=== PATIENT | female | born 2005 | race Caucasian/White ===

== ENCOUNTER 2023-09-07 15:45 | Outpatient (CLI) | payer OTHER, SELFPAY ==
--- NOTE | ~2023-09-07 | US_ITS ---
EXAMINATION: US OB <= 14 weeks fetus INDICATION: N91.2 - Amenorrhea, unspecified TECHNIQUE: Sonography of the pelvis was performed by transabdominal and transvaginal techniques. COMPARISON: None. RESULT: Uterus: 15.9 x 7.8 x 10.7 cm. Anteverted. Homogenous myometrium. Intrauterine gestational sac: Single present. Mean Sac Diameter: 6.7 cm, corresponding gestational age 13 week 1 days. Embryo: Single present. [place] rump length: 7.8 cm, corresponding gestational age 13 weeks, 6 days. Gestational heart rate: present 165 bpm. Subgestational hematoma: Absent . Right ovary: Not visualized. No adnexal mass. Left ovary: Not visualized. No adnexal mass. Pelvis free fluid: None. IMPRESSION: Single, live intrauterine gestation. Estimated Gestational Age: 13 weeks, 6 days by crown rump length. HORACE by ultrasound 03/08/2024. Reviewed, dictated and finalized at location K. IMPRESSION: Single, live intrauterine gestation. Estimated Gestational Age: 13 weeks, 6 days by crown rump length. HORACE by ultra sound 03/08/2024.
== END 2023-09-07 15:46 | disposition home or self-care (01) ==
LOC: ANHIMG 15:46
PROVIDERS: Visit Provider Student in an Organized Health Care Education/Training Program
DX: N91.2 Amenorrhea, unspecified (principal); Z3A.13 13 weeks gestation of pregnancy
CPT/HCPCS: 76801

== ENCOUNTER 2023-09-28 13:39 | Outpatient (CLI) | payer OTHER, SELFPAY ==
[2023-09-28 14:19] LABS: Basophils Percent Auto 0.1 % (0.2-1.2); Eosinophils Absolute Auto 0.1 K/mm3 (0-0.3); Eosinophils Percent Auto 1.2 % (0-4.4); Hematocrit 39.2 % (37.0-47.0); Hemoglobin 13.2 g/dL (12.0-15.0); Immature Granulocyte Absolute 0.03 K/mm3 (0.00-0.031); Immature Granulocyte Percent A 0.4 % (0-0.5); Lymphocytes Absolute Auto 1.15 K/mm3 (0.9-3.2); Lymphocytes Percent Auto 13.9 % (18.3-44.2); Mean Corpuscular HGB Conc 33.7 g/dl (32-36); Mean Corpuscular Hemoglobin 28.9 pg (26-34); Mean Platelet Volume 9.7 fl (7.4-10.4); Monocytes Absolute Auto 0.7 K/mm3 (0.1-0.6); Monocytes Percent Auto 7.9 % (2.6-8.5); Neutrophils Absolute Auto 6.3 K/mm3 (1.3-6.7); Neutrophils Percent Auto 76.5 % (45.5-73.1); Platelet Count Result 233 k/mm3 (150-375); Red Blood Count 4.56 M/mm3 (4.2-5.4); Red Cell Distribution Width 12.4 % (11.5-14.5); White Blood Count 8.3 K/mm3 (4.5-10.0)
[2023-09-28 15:12] LABS: HIV 1/2 Ab P24 Ag Result Negative (Negative)
[2023-09-28 15:14] LABS: Hepatitis B Surface Antigen Negative (Negative); Rubella IgG Antibody 45.5 IU/ML
[2023-09-29 14:05] LABS: Rapid Plasma Reagin Non-Reactive (NonReactive)
[2023-10-11 12:24] LABS: SMA 2.0 RISK VARIANT NOT DETECTED
[2023-10-17 00:14] LABS: CF Result NEGATIVE (NEGATIVE)
[2023-10-17 14:35] LABS: SMA Results Received YES
== END 2023-09-28 13:40 | disposition home or self-care (01) ==
LOC: ANHLAB 13:41
PROVIDERS: Visit Provider Student in an Organized Health Care Education/Training Program
DX: N94.89 Other specified conditions associated with female genital organs and menstrual cycle (principal)
CPT/HCPCS: 36415; 81220; 81329; 84702; 85025; 86592; 86644; 86703; 86747; 86762; 86787; 86850; 86900; 86901; 87086; 87340; G0432

== ENCOUNTER 2023-12-21 07:08 | Outpatient (CLI) | payer OTHER, SELFPAY ==
[2023-12-21 09:42] LABS: Basophils Percent Auto 0.3 % (0.2-1.2); Eosinophils Absolute Auto 0.1 K/mm3 (0-0.3); Hematocrit 36.7 % (37.0-47.0); Hemoglobin 11.6 g/dL (12.0-15.0); Immature Granulocyte Absolute 0.04 K/mm3 (0.00-0.031); Immature Granulocyte Percent A 0.4 % (0-0.5); Lymphocytes Absolute Auto 1.26 K/mm3 (0.9-3.2); Mean Corpuscular HGB Conc 31.6 g/dl (32-36); Mean Corpuscular Hemoglobin 27.1 pg (26-34); Mean Corpuscular Volume 85.7 fl (80-100); Mean Platelet Volume 9.7 fl (7.4-10.4); Monocytes Absolute Auto 0.7 K/mm3 (0.1-0.6); Monocytes Percent Auto 7.4 % (2.6-8.5); Neutrophils Absolute Auto 7.6 K/mm3 (1.3-6.7); Neutrophils Percent Auto 77.9 % (45.5-73.1); Platelet Count Result 261 k/mm3 (150-375); Red Blood Count 4.28 M/mm3 (4.2-5.4); Red Cell Distribution Width 12.4 % (11.5-14.5); White Blood Count 9.7 K/mm3 (4.5-10.0)
[2023-12-21 09:51] LABS: Glucose 1 Hour PP 50gm Dose 132 mg/dL
[2023-12-21 10:36] LABS: HIV 1/2 Ab P24 Ag Result Negative (Negative)
[2023-12-22 07:41] LABS: Rapid Plasma Reagin Non-Reactive (NonReactive)
== END 2023-12-21 07:09 | disposition home or self-care (01) ==
LOC: ANHLAB 07:10
PROVIDERS: Visit Provider Student in an Organized Health Care Education/Training Program
DX: Z34.90 Encounter for supervision of normal pregnancy, unspecified, unspecified trimester (principal); Z3A.00 Weeks of gestation of pregnancy not specified
CPT/HCPCS: 36415; 82947; 85025; 86592; 86703; G0432

== ENCOUNTER 2023-12-25 07:02 | Outpatient (CLI) | payer OTHER, SELFPAY ==
[2023-12-25 07:30] LABS: Glucose Fasting Gestational 88 mg/dL (>/=95)
[2023-12-25 08:52] LABS: Glucose 1 Hour Gest 139 mg/dL (>/=180)
[2023-12-25 09:53] LABS: Glucose 2 Hour Gest 135 mg/dL (>/= 155)
[2023-12-25 10:56] LABS: Glucose 3 Hour Gest 88 mg/dL (>/=140)
== END 2023-12-25 07:03 | disposition home or self-care (01) ==
LOC: ANHLAB 07:04
PROVIDERS: Visit Provider Student in an Organized Health Care Education/Training Program
DX: Z34.90 Encounter for supervision of normal pregnancy, unspecified, unspecified trimester (principal); Z3A.00 Weeks of gestation of pregnancy not specified
CPT/HCPCS: 36415; 82951; 82952

== ENCOUNTER 2024-02-07 09:49 | Outpatient (CLI) | payer OTHER, SELFPAY ==
--- NOTE | ~2024-02-07 | US_ITS ---
EXAMINATION: US OB follow up DATE: 02/07/2024 10:07 INDICATION: Assess growth and amniotic fluid index TECHNIQUE: Real-time ultrasound of the pelvis was performed. The interpreting radiologist was not pre sent for the study. COMPARISON: None. FINDINGS: There is a single living fetus in vertex presentation. The placenta is posterior. heart rate i s 152 beats per minute (bpm). The amniotic fluid index is 11.4 cm, which is normal (5th%-95%: 7.9-24 .9 cm at 35 weeks estimated gestational age). The following biometric data were obtained: BPD: 9.0 cm -> 36 weeks 4 days Head circumference: 31.7 cm -> 35 weeks 4 days Abdominal circumference: 32.0 cm -> 35 weeks 6 days Femur length: 7.4 cm -> 37 weeks 5 days These measurements are concordant. Head circumference to abdominal circumference ratio: 0.99 (normal range 0.92-1.07). Estimated weight: 2935 g (+/-) 440 g or 6 lbs. 8 oz. (+/-) 16 oz. IMPRESSION: 1. Single living fetus in vertex presentation with heart rate of 152 bpm. 2. Normal amniotic fluid index of 11.4 cm. 3. Estimated weight is 70th percentile by Hadlock criteria when 03/08/2024 is used as the estim ated date of delivery (HORACE). Please correlate with clinical information or earlier ultrasounds for mo st accurate HORACE. Reviewed, dictated and finalized at location A. IMPRESSION: 1. Single living fetus in vertex presentation with heart rate of 152 bpm. 2. Normal amniotic fluid index of 11.4 cm. 3. Estimated weight is 70th percentile by Hadlock criteria when 4 is used as the estimated date of delivery (HORACE). Please correlate with clinic al information or earlier ultrasounds for most accurate HORACE.
== END 2024-02-07 09:50 | disposition home or self-care (01) ==
LOC: GOSHIMG 09:49
PROVIDERS: PCP Student in an Organized Health Care Education/Training Program; Visit Provider Student in an Organized Health Care Education/Training Program
DX: Z36.9 Encounter for antenatal screening, unspecified (principal); Z3A.00 Weeks of gestation of pregnancy not specified
CPT/HCPCS: 76816

== ENCOUNTER 2024-03-08 15:25 | Inpatient (IN) | payer OTHER, SELFPAY ==
[2024-03-08] VITALS (66 sets, daily range): BP systolic 94–147; BP diastolic 52–98; PULSE 59–109; TEMP 36.2–36.5; O2SAT 98–100; BMI 33.7
[2024-03-08 16:47] LABS: Basophils Percent Auto 0.2 % (0.2-1.2); Eosinophils Absolute Auto 0.1 K/mm3 (0-0.3); Eosinophils Percent Auto 0.6 % (0-4.4); Immature Granulocyte Absolute 0.04 K/mm3 (0.00-0.031); Immature Granulocyte Percent A 0.5 % (0-0.5); Lymphocytes Percent Auto 16.9 % (18.3-44.2); Mean Corpuscular HGB Conc 31.6 g/dl (32-36); Mean Corpuscular Hemoglobin 23.8 pg (26-34); Mean Corpuscular Volume 75.4 fl (80-100); Monocytes Absolute Auto 0.6 K/mm3 (0.1-0.6); Monocytes Percent Auto 7.4 % (2.6-8.5); Neutrophils Absolute Auto 6.2 K/mm3 (1.3-6.7); Neutrophils Percent Auto 74.4 % (45.5-73.1); Platelet Count Result 241 k/mm3 (150-375); Red Blood Count 5.04 M/mm3 (4.2-5.4); Red Cell Distribution Width 15.9 % (11.5-14.5); White Blood Count 8.3 K/mm3 (4.5-10.0)
[2024-03-08] MEDS: OXYTOCIN 30 UNITS/NS 500 ML 30 UNITS/500 ML BAG IV CONT (16:58)
[2024-03-08] MEDS: AMPICILLIN 2 GM/NS 100 ML 2 GM/100 ML BAG IVPB (16:59)
[2024-03-08] MEDS: LACTATED RINGERS 1,000 ML 125 ML IV CONT (16:59)
[2024-03-08 17:38] LABS: HIV 1/2 Ab P24 Ag Result Negative (Negative)
[2024-03-08 17:53] LABS: Rapid Plasma Reagin Non-Reactive (NonReactive)
[2024-03-08] MEDS: AMPICILLIN 1 GM/NS 50 ML 1 GM/50 ML BAG IVPB (20:30)
[2024-03-09] VITALS (60 sets, daily range): BP systolic 107–151; BP diastolic 43–93; PULSE 54–108; RESP 18–20; TEMP 36.6–37.3; O2SAT 95–99
[2024-03-09] MEDS: AMPICILLIN 1 GM/NS 50 ML 1 GM/50 ML BAG IVPB ×2 (00:31→04:20)
[2024-03-09] MEDS: LACTATED RINGERS 1,000 ML 125 ML IV CONT (02:57)
--- NOTE | 2024-03-09 06:31 | WPDHPUPDATE1 ---
History and Physical Update Update Date/Time: 03/09/24 06:31 19 yo at 40w0d who presents after SROM. History and Physical has been reviewed, including an updated exam of the patient. There are NO changes in the patient's condition. Risks, benefits, and alternatives have been discussed and questions answered. Patient agrees to proceed with procedure. A/P: admit to L&D routine admission orders Rh+ GBS +, will start abx continuous EFM pitocin for augmentation
--- NOTE | 2024-03-09 07:05 | PM.OBPRVD ---
OB - Vaginal Delivery Note Procedure Delivery date: 03/09/24 Induction method: None Delivery augmentation: Pitocin Delivery monitor: External FHT and Internal Uterine Route of delivery: Episiotomy description: None Laceration Description: Perineal - 3rd Degree Delivery repair: vicryl Specimen: No Quantitative Blood Loss (ml): 150 Anesthesia type: Epidural Disposition: Floor Complications: No immediate complications Narrative: Patient pushed for a spontaneous vaginal delivery. The fetus was delivered atraumatically and placed on the maternal abdomen. The cord was clamped and cut after 1 minute of life. The cord was double clamped and cut and a segment of cord was collected for cord gases. Cord blood was collected for blood type and Coomb's testing. The placenta delivered spontaneously and was noted to be intact. The perineum was inspected and a 3rd degree perineal laceration was noted. The rectal sphincter muscle was noted to be partially torn. The muscle was re-approximated with 2-0 vicryl. The deep space of the laceration was closed with 2-0 vicryl with a series of interrupted sutures. The remainder was the laceration was closed with 3-0 vicryl in a runnin fashion. A rectal exam was performed after repair to ensure an intact rectal mucosa. The uterus was firm and good hemostasis was noted.a Baby Date of : 03/09/24 Time of : 06:47 Gestational Age by Date: 40 gender: Female presentation: vertex position: Right Occiput Anterior Placenta delivery description: Spontaneous Cord Vessel Description: 3 Vessels score one minute: 8 score five minutes: 9
[2024-03-09] MEDS: OXYTOCIN 30 UNITS/NS 500 ML 30 UNITS/500 ML BAG 125 UNITS IV CONT (07:11)
[2024-03-09] MEDS: BENZOCAINE 20% AER SPR (*SP) 56 GM CAN 1 SPRAY TOPICAL (09:16)
[2024-03-09] MEDS: IBUPROFEN 600 MG TABLET PO ×3 (09:16→23:32)
[2024-03-09] MEDS: WITCH HAZEL 40 PADS 1 PAD TOPICAL (09:16)
--- NOTE | 2024-03-09 10:10 | PC.NURSE ---
Introductions were made, then consulted with patient to assess needs related to . Baby had an initial but didn't maintain the latch well per the nursery RN. Parents requested a pacifier and they were educated that it was their decision to provide one if desired, but that it may be beneficial to allow baby to learn how to latch to the breast first. admission folder given and early feeding cues reviewed as well as the blue feeding sheet. Recommended 8-12 feedings every 24 hours, with special attention to feeding baby on demand, not by the clock. Resources provided for inpatient and outpatient services with the feeding sheet, mom/baby guide and name/number written on the communication board. Mother voiced understanding of information and will call if there is a request for assistance. Reported to the Primary RN.
[2024-03-09] MEDS: DOCUSATE SODIUM 100 MG CAPSULE PO ×2 (10:17→15:54)
[2024-03-09] MEDS: FERROUS SULFATE 325 MG TABLET DR PO (10:17)
[2024-03-09] MEDS: ACETAMINOPHEN 325 MG TABLET 650 MG PO ×3 (10:18→23:31)
[2024-03-09] MEDS: MULTIVIT/MIN/PREN/FOL AC/IRON TABLET 1 TAB PO (10:18)
--- NOTE | 2024-03-09 10:45 | PC.NURSE ---
Parents called out for assistance. Baby was exhibiting early feeding cues and dad noticed and called out for help with getting baby to the breast. Mom is very uncomfortable due to her 3rd degree perineal tear, so we fed in modified laid back position. Baby was able to lay tummy to tummy with mom. She was eager and when offered the breast she latched easily and independently. Baby was able to draw the breast in for an optimal deep latch. Education given to parents about how to recognize a deep latch, listen for swallowing, break suction from the latch, and to watch for signs that baby needs stimulation to keep suckling. Baby needed some encouragement but overall suckled very consistently. She slipped to the nipple once and mom expressed discomfort, so we relatched and baby independently obtained a deep latch again. Baby nursed for 10 minutes before falling asleep. Encouraged parents to watch for signs she is satisfied. Dad was educated on swaddling and he will help mom observe for early feeding cues and offer the breast when noted. Parents are very tired and will need reinforcement, but they were receptive to education and verbalized understanding of the shared information. Reported to primary RN.
[2024-03-09] MEDS: HYDROcodone/acetaminophen (*CRX) 5-325 MG TABLET 1 TAB PO ×2 (11:00→20:10)
--- NOTE | 2024-03-09 12:07 | PC.NURSE ---
Patient called out stating that she felt some pressure and feels like she is over heating. Fundus remains firm at uu, small lochia rubra noted. VSS.Temp in room decreased. Patient reassured and encouraged to call as needed.
--- NOTE | 2024-03-09 12:45 | PC.NURSE ---
Infant blood sugar checked in preparation to begin feeding. Parents began attempting on their own, and when checked on, they had baby latched to the right breast in a side lying position. Mom said the latch was pinching a little. We ensured baby's bottom lip was rolled out and we compressed a bit more tissue into baby's mouth. Mom said it felt much better. Baby was active and nursing consistently. Mom was encouraged to maintain the deep latch throughout the feeding and to call if baby came off the breast and she needs assistance latching again. Parents verbalized understanding. Reported to primary RN.
--- NOTE | 2024-03-09 12:45 | OBPPTRN ---
Patient transferred to post room #112 via (wheelchair ). Support person present. Oriented to unit, room, information board, rooming in, admission packet and security measures. Patient verbalizes understanding.
[2024-03-09] MEDS: SENNA/DOCUSATE SODIUM TABLET 2 TAB PO (23:32)
[2024-03-10 04:24] VITALS: PULSE 84; O2SAT 99
[2024-03-10 04:25] VITALS: BP 116/46; PULSE 77; RESP 18; TEMP 36.8
[2024-03-10 04:34] VITALS: BP 114/45; PULSE 78
[2024-03-10 04:47] LABS: Hematocrit 32.5 % (37.0-47.0); Hemoglobin 9.8 g/dL (12.0-15.0)
[2024-03-10] MEDS: DIBUCAINE 1% OINTMENT 30 GM TUBE 1 APPLIC TOPICAL (04:56)
[2024-03-10 05:40] VITALS: BP 108/46; PULSE 74; PULSE 76; O2SAT 99
[2024-03-10] MEDS: MULTIVIT/MIN/PREN/FOL AC/IRON TABLET 1 TAB PO (08:50)
[2024-03-10] MEDS: DOCUSATE SODIUM 100 MG CAPSULE PO ×2 (08:50→17:15)
[2024-03-10] MEDS: FERROUS SULFATE 325 MG TABLET DR PO (08:50)
[2024-03-10] MEDS: POLYSACCHARIDE IRON COMPLEX 150 MG CAPSULE PO ×2 (08:50→17:15)
[2024-03-10 08:51] VITALS: BP 133/61; PULSE 83; RESP 16; TEMP 36.6
--- NOTE | 2024-03-10 09:15 | P.PNOB_ITS ---
OB - PN: Subj Subjective Date/time seen: 03/10/24 09:15 Patient comments: no complaints, pain well controlled and tolerating diet [place] feeding status: exclusively breast feeding Narrative: patient doing well this AM. No complaints. Pain is well controlled. She reports minimal bleeding. She is ambulating and voiding without difficulty. She is tolerating PO. She denies N/V, fever, chills. OB - PN: Obj Data Labs 03/10/24 04:33 Labs: Laboratory Results - last 24 hr 03/10/24 04:33 Hgb 9.8 L Hct 32.5 L OB - PN A/P Plan day: 1 Plan: routine care Comments: patient doing well H/H . VSS will continue [place] PRN for perineal pain continue routine care anticipate d/c home tomorrow Time Spent With Patient Time: Total time spent is greater than 50% in coordination of care (as documented) at patient's floor/unit and/or counseling patient: Time with patient: less than 15 minutes Review of Systems Review of Systems: All systems reviewed & are unremarkable except as noted in HPI and below Exam Const: General: comfortable and no acute distress Resp: Effort & Inspection: normal respiratory effort Cardio: Rate: regular rate GI: GI Palp: Yes Soft to palpation and No Tenderness to palpation present (GI) Auscultation: normal bowel sounds Other: fundus firm and below umbilicus. Psych: Affect: normal affect
[2024-03-10] MEDS: IBUPROFEN 600 MG TABLET PO ×2 (13:05→20:12)
[2024-03-10] MEDS: HYDROcodone/acetaminophen (*CRX) 5-325 MG TABLET 1 TAB PO (13:05)
[2024-03-10 19:56] VITALS: BP 128/63; PULSE 70; PULSE 73; RESP 16; TEMP 36.6; O2SAT 98
[2024-03-10] MEDS: ACETAMINOPHEN 325 MG TABLET 650 MG PO (20:12)
[2024-03-10] MEDS: SENNA/DOCUSATE SODIUM TABLET 2 TAB PO (21:49)
--- NOTE | 2024-03-11 05:22 | P.DS_ITS ---
DS: Admitting Diagnosis Discharge Date 03/11/24 Admitting Diagnosis intrauterine at term spontaneous rupture of membranes DS: Discharge Diagnosis Discharge Diagnosis (1) Normal vaginal delivery: Code(s): O80 - Encounter for full-term uncomplicated delivery Status: Acute OB - DS: Summary OB Procedures : None OB Procedures Intrapartum: Spontaneous Vag Delivery OB Procedures: : None Peripartum Data Laceration Description: Perineal - 3rd Degree Episiotomy description: None Status at Discharge Functional status at discharge: independent ambulation Overall status at discharge: patient is back to baseline Time Spent with Patient Time attestation: Total time spent providing and/or coordinating discharge services: Time spent: Less than 30 minutes Exam Const: General: comfortable and no acute distress Resp: Effort & Inspection: normal respiratory effort Auscultation: clear to auscultation bilaterally Cardio: Rate: regular rate GI: GI Palp: Yes Soft to palpation Auscultation: normal bowel sounds Other: Fundus firm below umbilicus Psych: Appearance: grossly normal Mental Status: mental status grossly normal Affect: normal affect Discharge Plan Discharge Discharging Clinician: Delmar Guerrero Patient Disposition: Home, Self-Care Activity: as tolerated and pelvic rest Diet: regular Patient Instructions: Antibiotic Form, Perineal Tear with Delivery (DC), Vag inal Delivery (DC) Stand Alone Forms: General Discharge Information Follow-up/Referrals: Delmar Guerrero MD [Primary Care Provider] - 4 Weeks Discharge Medications: New acetaminophen 500 mg tablet 500 mg PO Q6H PRN (Reason: pain) Qty: 30 0RF ibuprofen 600 mg tablet 600 mg PO Q6H PRN (Reason: pain) Qty: 30 0RF sennosides-docusate sodium [Senokot-S] 8.6-50 mg Tablet 2 tab PO HS Qty: 30 0RF Continued Classic 28 mg iron- 800 mcg tablet 1 tablet PO DAILY ferrous sulfate 325 mg (65 mg iron) tablet 325 mg PO DAILY Date of admission: 03/08/24 15:25 Primary Care Provider: Delmar Guerrero Admitting Provider: Delmar Guerrero Attending physician on admission: Delmar Guerrero Condition: Stable
[2024-03-11 08:00] VITALS: BP 138/77; PULSE 75; RESP 18; TEMP 36.4; O2SAT 100
[2024-03-11 08:06] VITALS: PULSE 92; O2SAT 99
[2024-03-11] MEDS: IBUPROFEN 600 MG TABLET PO (08:07)
[2024-03-11] MEDS: MULTIVIT/MIN/PREN/FOL AC/IRON TABLET 1 TAB PO (08:07)
[2024-03-11 08:08] VITALS: BP 138/77; PULSE 75
[2024-03-11] MEDS: POLYSACCHARIDE IRON COMPLEX 150 MG CAPSULE PO (08:08)
[2024-03-11] MEDS: DOCUSATE SODIUM 100 MG CAPSULE PO (08:08)
--- NOTE | 2024-03-11 08:15 | PC.NURSE ---
Consulted with mother concerning needs and she shared her ability to independently latch infant. She has some nipple soreness but is able to recognize a good versus a bad latch. We reviewed breaking the latch and starting over if it doesn't feel right and not letting baby nurse with a painful latch. Baby was observed feeding in side lying position and was able to maintain a deep latch. Mother is feeding appropriately for growth of and understands stimulating infant to eat if needed. has had appropriate feedings in the last 24 hours meets the outcomes for weight, output, blood sugar and jaundice at this time. Reinforced understanding of milk production, transition of milk, signs of adequate intake, transition of stool, prevention/relief of engorgement, plugged ducts, mastitis, responsive watching for feeding cues, the different methods of stimulating to breastfeed 1-3 hours after the start of the last feeding, community resources, and when to call a provider using the resource of the feeding sheet along with the mom and baby guide. Patient requested a breast pump and a Zomee pump was given and reviewed. Encouraged patient to reference their website for usage videos as well as using the manual for the clam dredge boat captain's recommendations. Mom is signed up for WIC and a WIC referral sheet was faxed to the [facility] location. Mother voiced understanding of the information shared, is confident to continue effectively her infant at home, when to call for assistance, denies any additional assistance or education at this time. Reported to the Primary RN.
--- NOTE | 2024-03-11 08:47 | PC.NURSE ---
Patient viewed the discharge video Mother & Baby Care, The First Two Weeks . Patient was given the opportunity and encouraged to ask questions. Patient verbalized understanding of information shared and has been given the mother/baby guide for home reference.
[2024-03-12 10:52] VITALS: BP 129/70; PULSE 80; RESP 16; TEMP 36.4; O2SAT 98
== END 2024-03-11 11:05 | disposition home or self-care (01) | DRG 768 ==
LOC: ANHLDR 17:56 → ANHOBPP 03-09 10:17
PROVIDERS: Admitting Provider Student in an Organized Health Care Education/Training Program; PCP Student in an Organized Health Care Education/Training Program; Visit Provider Student in an Organized Health Care Education/Training Program
DX: O99.824 Streptococcus B carrier state complicating childbirth (principal); Z37.0 Single live birth; Z3A.40 40 weeks gestation of pregnancy; O70.20 Third degree perineal laceration during delivery, unspecified
CPT/HCPCS: 36415; 85014; 85018; 85025; 86592; 86703; 86850; 86900; 86901; A9270; G0432; J0290; J2590; J2795; J7120

== ENCOUNTER 2024-05-08 08:38 | Emergency (ER) | payer OTHER, MEDICAID, SELFPAY ==
--- NOTE | 2024-05-08 08:53 | ED.URI ---
HPI - URI/Sore Throat General Chief Complaint: Upper Respiratory Infection Stated Complaint: FEVER/SORE THROAT/STUFFY NOSE Time Seen by Provider: 05/08/24 08:55 Source: patient Mode of arrival: ambulatory Limitations: no limitations History of Present Illness HPI Narrative: Nevin is a 19-year-old female patient presenting to the clinic today with complaints of tactile fever, sore throat, nasal congestion, and cough since yesterday morning around 4:00 a.m.. 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 She has a 2-month-old at home. No one else at home is sick. MD elicited complaint: fever, cough, sore throat and nasal congestion Related Data Home Medications ?Medication ?Instructions ?Recorded ?Confirmed ?Last Taken ?Type vits no.126-ferrous fum 1 tablet PO DAILY 08/28/23 04/01/24 1 Day Ago History 28 mg iron-folic acid 800 mcg ~02/06/24 tablet (Classic ) ferrous sulfate 325 mg (65 mg 325 mg PO DAILY 01/17/24 04/01/24 1 Day Ago History iron) tablet ~02/06/24 Allergies Allergy/AdvReac Type Severity Reaction Status Date / Time tree nut Allergy Severe Anaphylaxis Verified 05/08/24 08:56 benzoyl peroxide (From AdvReac Intermediate Rash Verified 05/08/24 08:56 Panoxyl) Review of Systems Review of Systems: Pertinent positives per HPI. Patient denies any rash, headache, visual changes, dizziness, shortness of breath, chest pain, palpitations, nausea, vomiting, diarrhea, constipation, abdominal pain, or any urinary issues. [facility] Past Medical History Medical History Suppression of menses Surgical History Surgical History Status post excision of lipoma Family History Family History Grandparent Breast cancer Social History Social History Smoking status: Never smoker Second hand tobacco smoke exposure: Yes Alcohol intake: never Substance use: never Do You Feel Safe in your Home?: Yes Lack of Transportation: No Lack of Food: Never True Current Housing: I Have Housing Concerned About Future Housing: No Difficulty Paying Gas/Electric Bills: No Difficulty Paying for Meds: No Currently Unemployed: No Education: Associate Degree Difficulty w/ Childcare or Family Care: No Living arrangements: with family Occupation/Education: student Gender identity (if verbalized by the patient): Female Spiritual care concerns: No Comments At the time of my signature, I reviewed and agree with the nursing past medical, surgical, social, and family history. There is no relevant family history pertinent to the patient complaint. Exam Narrative: General: Well-developed, well nourished, in no apparent distress Head: Normocephalic, atraumatic Eyes: Pupils equally round and reactive to light bilaterally, EOM intact, sclera and conjunctive clear, no discharge, lids normal Ears: TMs intact and clear, ear canals clear, no drainage, grossly hearing normal. Nose: Nares patent, clear nasal discharge, no inflammation, no sinus tenderness. Mouth: Oral pharynx mildly red without lesions or masses, good dentition, MMM. Neck: Supple, trachea midline, no enlargement of anterior or posterior cervical nodes, no thyroid masses or goiter palpable. Cardio: Regular rate and rhythm, s1 and s2 normal, no murmur appreciated. Resp: Clear to auscultation bilaterally, no rhonchi, rales, wheezing or rubs Course Course Emergency Course: Portions of this record may have been created with voice recognition software. Level of Care: Express Care Visit Vital Signs Vital signs: Vital Signs Oxygen Delivery Room Air 05/08/24 08:50 Temperature 36.6 C 05/08/24 08:54 Pulse Rate 111 H 05/08/24 08:54 Respiratory Rate 16 05/08/24 08:54 Blood Pressure 139/68 05/08/24 08:54 Pulse Oximetry 99 05/08/24 08:54 Oxygen Delivery Room Air 05/08/24 08:50 Vital signs reviewed MDM - URI/Sore Throat MDM Narrative Medical decision making narrative: At the time of visit patient is resting comfortably on the exam table. Patient appears to be nontoxic. Labs: COVID, influenza, and strep test were all performed. All testing was negative. Plan: I suspect patient has URI/pharyngitis. Supportive measures were discussed with the patient and they voiced understanding discharge instructions and agrees to treatment plan. Return precautions reviewed Differential Diagnosis Differential diagnosis: Likely upper respiratory infection, otitis media, sinusitis, viral infection, bronchitis, influenza, pharyngitis and other (COVID) Lab Data Labs: Lab Results 05/08/24 Range/Units 08:50 POC Influenza A Ag Negative (Negative) POC Influenza B Ag Negative (Negative) POC SARS CoV-2 Ag Negative (Negative) POC Grp A Strep Screen Negative (Negative) Discharge Plan Discharge Clinical Impression: URI (upper respiratory infection) Qualifiers: URI type: unspecified URI Qualified Code(s): J06.9 - Acute upper respiratory infection, unspecified Pharyngitis Qualifiers: Pharyngitis/tonsillitis etiology: unspecified etiology Qualified Code(s): J02.9 - Acute pharyngitis, unspecified Patient Disposition: Home, Self-Care Condition: Stable Instructions: Antibiotic Form, Pharyngitis (ED), Cold Symptoms (ED) Additional Instructions: COVID, influenza, and strep test were all negative. We will send strep for culture if this comes back positive we will contact you in place you on antibiotics at that time. Increase fluids and stay well hydrated Tylenol/motrin for pain/fever Flonase and OTC antihistamines as directed Vicks vapor rub to open sinuses Sinus rinses for congestion Cepacol spray, cough drops, throat lozenges, warm tea with honey/lemon, gargle salt water to soothe throat BRAT diet for diarrhea Clear liquids x 24 hours then advance as tolerated for nausea/vomiting Go to the ED if you develop a worsening in your condition- high fever not controlled by Tylenol or Motrin, dehydration, weakness, lethargy, shortness of breath, or chest pain. Follow up with your PCP in 3-5 days if symptoms persist. Patient Language: Irish Prescriptions: No Action Classic 28 mg iron- 800 mcg tablet 1 tablet PO DAILY norethindrone (contraceptive) 0.35 mg tablet 0.35 mg PO DAILY Qty: 84 3RF ferrous sulfate 325 mg (65 mg iron) tablet 325 mg PO DAILY sennosides-docusate sodium [Senokot-S] 8.6-50 mg Tablet 2 tab PO HS Qty: 30 0RF Follow-up/Referrals: UNKNOWN,DOCTOR [Primary Care Provider] - Stand Alone Forms: Work/School Release IP Time of Disposition: 09:07 Quality NIHSS Nursing Documentation ED NIHSS nursing documentation: reviewed/agree
[2024-05-08 08:54] VITALS: BP 139/68; PULSE 111; RESP 16; TEMP 36.6; O2SAT 99
[2024-05-08 09:10] LABS: EDCOVIDSCREEN Negative (Negative); EDINFLUASCREEN Negative (Negative); EDINFLUBSCREEN Negative (Negative); EDSTREPNEGPOS1 Negative (Negative)
== END 2024-05-08 09:11 | disposition home or self-care (01) ==
PROVIDERS: Emergency Provider Nurse Practitioner Family
DX: J06.9 Acute upper respiratory infection, unspecified (principal); J02.9 Acute pharyngitis, unspecified; Z20.822 Contact with and (suspected) exposure to COVID-19
CPT/HCPCS: 87081; 87426; 87804; 87880; 99213; G0463